=== PATIENT | female | born 1990 | race Caucasian/White ===

== ENCOUNTER 2017-10-20 13:29 | Emergency (ER) | payer MEDICAID ==
[2017-10-20] MEDS ORDERED: Sodium Chloride 0.9% 1,000 ML IV ONE (15:19)
[2017-10-20] MEDS ORDERED: Sodium Chloride 0.9% 1,000 ML ONE (15:40)
[2017-10-20 16:01] LABS: BASO % 0.4 % (0.0-2.0); EOS % 0.2 % (0.0-4.0); HEMOGLOBIN 11.1 g/dL (11.0-16.0); LYMPH # 1.1 K/uL (1.0-4.3); LYMPH % 28.6 % (20.0-40.0); MEAN CELL VOLUME 81.2 fL (81.0-99.0); MEAN CORPUSCULAR HEMOGLOBIN 26.8 pg (27.0-31.0); MONO # 0.3 K/uL (0.0-0.8); MONO % 8.9 % (0.0-10.0); NEUT # 2.3 K/uL (1.8-7.0); NEUT % 61.9 % (50.0-75.0); NRBC % 0.1 % (0.0-2.0); RBC 4.15 Mil/uL (3.80-5.20); RED CELL DISTRIBUTION WIDTH 17.9 % (11.5-14.5); WHITE BLOOD COUNT 3.7 K/uL (4.8-10.8)
[2017-10-20 16:26] LABS: CALCIUM 8.8 mg/dl (8.6-10.4); GFR AFRICAN-AMERICAN > 60; GFR NON-AFRICAN AMERICAN > 60
[2017-10-20 16:31] LABS: ALB/GLOB RATIO 0.7 (1.0-2.1); ALBUMIN 4.3 g/dL (3.5-5.0); ALT/SGPT 34 U/L (9-52); AST/SGOT 50 U/L (14-36); BLOOD UREA NITROGEN 12 mg/dL (7-17)
--- NOTE | 2017-10-20 18:09 | C.PDOC ---
History Of Present Illness Patient is a 26 y/o female with pmHx of asthma, HIV, and asthma who presents to the ED with a complaint of MENARD associated with nausea and photophobia for the past 9 days. Pt notes headache is "all over". Patient states she took Ibuprofin and valium without relief. Admits to being evaluated [place] [facility] [place], getting negative CT. Pt notes she has not followed up with her viral load or CD 4 count in August or September. On daily bactrim. Time Seen by Provider: 10/20/17 13:46 Chief Complaint (Nursing): Headache History Per: Patient History/Exam Limitations: no limitations Onset/Duration Of Symptoms: Days (9 days) Current Symptoms Are (Timing): Still Present Associated Symptoms: Photophobia, Nausea Recent travel outside of the [place]: No Past Medical History Reviewed: Historical Data, Nursing Documentation, Vital Signs Vital Signs: Last Vital Signs Temp 98.6 F 10/20/17 13:31 Pulse 94 H 10/20/17 13:31 Resp 18 10/20/17 13:31 BP 128/85 10/20/17 13:31 Pulse Ox 99 10/20/17 18:12 - Medical History PMH: Anxiety, Asthma, Depression, HIV, Hypothyroidism, Seizures Surgical History: No Surg Hx Family History: States: Unknown Family Hx - Social History Hx Tobacco Use: No Hx Alcohol Use: No Hx Substance Use: No - Immunization History Hx Tetanus Toxoid Vaccination: No Hx Influenza Vaccination: Yes Hx Pneumococcal Vaccination: No Review Of Systems Eyes: Positive for: Other (photophobia) Gastrointestinal: Positive for: Nausea Neurological: Positive for: Headache Physical Exam - Physical Exam Appears: Well, Non-toxic, Other (uncomfortable , crying) Skin: Normal Color, Warm, Dry Head: Atraumatic, Normacephalic Eye(s): bilateral: EOMI, Photophobia Nose: Normal Oral Mucosa: Moist Throat: Normal, No Erythema, Other ((-) thrush) Neck: Normal ROM, Supple Chest: Symmetrical Cardiovascular: Rhythm Regular Respiratory: Normal Breath Sounds, No Accessory Muscle Use Gastrointestinal/Abdominal: Soft, No Tenderness Neurological/Psych: Oriented x3, Normal Speech, Normal Cognition, Normal Cranial Nerves (2-12 grossly intact), Normal Motor, Normal Sensation, Other (no focal deficits) ED Course And Treatment - Laboratory Results Result Diagrams: 10/20/17 15:57 12/30/17 15:57 O2 Sat by Pulse Oximetry: 99 Progress Note: Valium, toradol, reglan, and IV fluids administered. On re- evaluation, headache persists. Valium ordered. On re-evaluation, headache persists. Pt seen and evaluated by Dr Bonner, agreed upon plan and treatment. Disposition - Disposition Disposition: HOSPITALIZED Disposition Time: 19:01 Condition: STABLE Forms: [employer] ([place]) - Clinical Impression Clinical Impression: Headache - Scribe Statement The provider has reviewed the documentation as recorded by the Scribe Shruti Das All medical record entries made by the Scribe were at my direction and personally dictated by me. I have reviewed the chart and agree that the record accurately reflects my personal performance of the history, physical exam, medical decision making, and the department course for this patient. I have also personally directed, reviewed, and agree with the discharge instructions and disposition.
--- NOTE | 2017-10-20 19:14 | CT ---
EXAM: CT Head Without Intravenous Contrast CLINICAL HISTORY: 26 years old, female; Pain; Headache; Headache not specified TECHNIQUE: Axial computed tomography images of the head/brain without intravenous contrast. All CT scans at this facility use one or more dose reduction techniques, viz.: automated exposure control; ma/kV adjustment per patient size (including targeted exams where dose is matched to indication; i.e. head); or iterative reconstruction technique. Coronal and sagittal reformatted images were created and reviewed. COMPARISON: CT - HEAD W/O CONTRAST 2014-05-04 00:01 FINDINGS: Brain: Left frontal and parietal white matter hypoattenuation. Additional scattered areas of white matter hypoattenuation. Evidence of atrophy in the left cerebral hemisphere. Basal ganglia calcification, however, there is increased asymmetry and prominence on the left, cannot exclude other lesion. Followup evaluation with MRI is recommended. No hemorrhage. No edema. Ventricles: No hydrocephalus. Bones/joints: Skull is intact. Soft tissues: No acute abnormality as visualized. Sinuses: No acute sinusitis. Mastoid air cells: Opacification of right mastoid air cells and fluid in the middle ear. Correlate for infection/mastoiditis. IMPRESSION: Left frontal and parietal white matter hypoattenuation. Additional scattered areas of white matter hypoattenuation. Evidence of atrophy in the left cerebral hemisphere. Appearance is abnormal in a patient this age, correlate with history. Basal ganglia calcification, however, there is increased asymmetry and prominence on the left, cannot exclude other lesion. Followup evaluation with MRI is recommended. Opacification of right mastoid air cells and fluid in the middle ear. Correlate for infection/mastoiditis.
[2017-10-20] MEDS ORDERED: Lactated Ringer's 1,000 ML IV STA (19:58)
[2017-10-20] MEDS ORDERED: Lactated Ringer's 1,000 ML ONE (20:16)
[2017-10-20 21:07] VITALS: O2SAT 100
[2017-10-21 06:24] VITALS: BP 113/78; PULSE 78; RESP 18; TEMP 98.4
== END 2017-10-21 06:22 | disposition home or self-care (01) ==
LOC: C.ER 13:29
DX: R51 Headache (principal); Z59.0 Homelessness; E03.9 Hypothyroidism, unspecified
CPT/HCPCS: 70450; 80053; 85025; 96361; 96372; 96374; 96375; 99284; J1100; J1885; J2270; J2405; J2765; J3030; J7040; J7120